=== PATIENT | male | born 1955 | race Caucasian/White ===

== ENCOUNTER 2017-03-22 20:41 | Emergency (ER) | payer OTHER ==
[2017-03-22 20:48] VITALS: RESP 18; O2SAT 92
--- NOTE | 2017-03-22 20:55 | EDPHY ---
H & P Stated Complaint: Fever, Recent Surg (gastic sleeve) HPI/ROS: CHIEF COMPLAINT: Postoperative fever HISTORY OF PRESENT ILLNESS: The patient is a anticoagulated 61 y/o male arriving with his complaining of a post-operative fever. He has a prior history of diverticulitis with subsequent colostomy. He had a gastric bypass sleeve performed on 03/18/17, 4 days ago. He was feeling well until yesterday when he began to develop chills. At 08:00 this morning, over 12 hours ago, he had a fever of 102 for which he has taken one dose of Tylenol. He describes continued bloody drainage into HEATHER drain, perhaps slightly increased from the amount of drainage he had been having. No significant change in ostomy output. He denies dyspnea, urinary symptoms, chest pain. REVIEW OF SYSTEMS: A ten point review of systems was performed and is negative with the exception of the items mentioned in the HPI. Source: Patient, Family - Personal History Current Tetanus/Diphtheria Vaccine: Yes Current Tetanus Diphtheria and Acellular Pertussis (TDAP): Yes Tetanus Vaccine Date: < 10 YRS - Medical/Surgical History PMH: PMH includes: 1. Diverticulitis with colostomy 2. Hernia surgery 3. Gastric bypass sleeve 03/18/17 at 4. Hypertension 5. Hyperlipidemia 6. Obesity surgeon: Dr. Nugent Hx Asthma: No Hx Chronic Respiratory Disease: No Hx Diabetes: Yes Hx Cardiac Disease: No Hx Renal Disease: No Hx Cirrhosis: No Hx Alcoholism: No Hx HIV/AIDS: No Hx Splenectomy or Spleen Trauma: No Other PMH: Diverticulitis, HTN, hyperlipidemia, Gastric Sleeve surgery, Ostomy, abdominal hernia, - Social History Smoking Status: Never smoked Additional Social History: at bedside. Works in [employer]). No tobacco use. - Physical Exam Exam: General Appearance: Alert. Vital signs reviewed. Temperature 38.3, blood pressure 166/84 at triage. HR 109. Eyes: Pupils equal and round, no conjunctival injection, no discharge. Anicteric. ENT, Mouth: Mucous membranes are moist, no oropharyngeal erythema or edema. Neck: No lymphadenopathy, supple. Respiratory: Lungs are clear to auscultation; no wheezes, rales, or rhonchi. Cardiovascular: Regular rate and rhythm; no murmur, rub, or gallop. Not tachycardic at time of my exam, although he was in triage. Gastrointestinal: Abdomen is obese, soft and nontender, no masses or organomegaly, bowel sounds present, mild erythema at HEATHER drain site, colostomy in place, hernia surrounding ostomy (easily reducible). Surgical incisions clean and dry. Skin: Warm and dry, no rashes on exposed skin, normal color. Back: Nontender to palpation over the thoracolumbar spine. No CVAT. Extremities: Chronic venous stasis changes to both lower extremities, no calf tenderness or swelling. Neurological: Alert and oriented. Moving all four extremities easily and equally. Psychiatric: Normal affect. Constitutional: Initial Vital Signs Temperature (C) 38.3 C 03/22/17 20:42 Heart Rate 109 H 03/22/17 20:42 Respiratory Rate 18 03/22/17 20:42 Blood Pressure 166/84 H 03/22/17 20:42 O2 Sat (%) 92 03/22/17 20:42 O2 Delivery Mode Room Air Allergies/Adverse Reactions: No Known Allergies Allergy (Verified 03/25/17 11:12) Home Medications: Medication Instructions Recorded Levothyroxine [Synthroid 100 mcg 100 mcg PO DAILY06 01/09/14 (*)] Metoprolol Tartrate [Lopressor 25 12.5 mg PO BID 01/09/14 mg (*)] Warfarin Sodium [Coumadin 3MG (*)] 9 mg PO DAILY16 10/22/14 oxyCODONE CR [Oxycontin] 30 mg PO BID #30 tab 11/13/14 oxyCODONE IR [Oxycodone Ir (*)] 15 - 20 mg PO Q4 PRN #60 tab 11/13/14 Medical Decision Making - Diagnostics Imaging: Discussed imaging studies w/ scallop dredger Radiologist, I viewed and interpreted images myself ED Course/Re-evaluation: IV established. Labs drawn including cultures. Abdominal CT ordered. Tylenol one gram administered. 2119: Consulted with Dr. Tay, surgeon. He will assess patient in the ED. 01/21/2025: Patient re-evaluated after returning from CT scan. The CT scan has been reported to me as showing an intact anastomatic line and no abscess. Patient is now afebrile with a temperature 37. His abdomen remains soft and nontender. Chest x-ray is not been done yet. Patient has not urinated. He would like to return home. A call has been placed [facility]. CXR does not show infiltrate. No urine obtained. Patient and his are comfortable returning home. Afebrile after tylenol. WBC 10.8 with mild left shift. Still mildly hypertensive (he has h/o htn). I spoke with on-call MD at [facility] and no further work-up recommended at this time. Patient will monitor his symptoms and return if he takes a turn for the worse. Differential Diagnosis: I considered a differential diagnosis that includes but is not limited to bowel obstruction, , urinary tract infection, intra-abdominal abscess, leakage from anastomotic line, pneumonia, wound infection. - Data Points Laboratory Results: Laboratory Results 03/22/17 21:08 03/22/17 21:08 Medications Given: Discontinued Medications Acetaminophen (Tylenol) 1,000 mg PO EDNOW ONE Stop: 03/22/17 21:52 Last Admin: 03/22/17 22:08 Dose: 1,000 mg Hydromorphone HCl (Dilaudid) 1 mg IVP EDNOW ONE Stop: 03/22/17 22:02 Last Admin: 03/22/17 22:09 Dose: 1 mg Sodium Chloride (Ns) 1,000 mls @ 0 mls/hr IV ONCE ONE PRN Reason: Wide Open Stop: 03/22/17 21:34 Last Admin: 03/22/17 21:30 Dose: 1,000 mls Departure - Departure Disposition: Home, Routine, Self-Care Clinical Impression: Fever Qualifiers: Fever type: due to other condition Qualified Code(s): R50.81 - Fever presenting with conditions classified elsewhere Condition: Good Instructions: Fever in Adults (ED) Additional Instructions: Take tylenol 650 mg every four hours for fever. Do not take more than 3000 mg of tylenol in a 24 hour period. If you have recurrent or persistent fever, abdominal pain, drainage from your incisions, warmth or redness of your incisions, vomiting, any new or concerning symptoms--you should be re-evaluated. Follow up with Dr. Nugent as planned. Referrals: Tita Garcia MD [Primary Care Provider] - As per Instructions Report Scribed for: Jessi León Report Scribed by: Brooke Mullen Date of Report: 03/22/17 Time of Report: 21:07 Physician Review and Approval Statement: 03/22/17 20:55 Portions of this note were transcribed by the medical educator. I, Dr. Jessi León, personally performed the history, physical exam, and medical decision- making; and confirmed the accuracy of the information in the transcribed note.
[2017-03-22 21:25] LABS: % IMMATURE GRANULYOCYTES 0.3 % (0.0-1.1); ABSOLUTE IMMATURE GRANULOCYTES 0.03 10^3/uL (0.00-0.10); ADD DIFF? NO; ADD MORPH? NO; ADD SCAN? NO; ATYPICAL LYMPHOCYTE FLAG 0 (0-99); FRAGMENT RBC FLAG 0 (0-99); HEMATOCRIT 43.8 % (40.0-51.0); HEMOGLOBIN 14.8 g/dL (13.7-17.5); LEFT SHIFT FLG 10 (0-99); LIPEMIA HEMOLYSIS FLAG 90 (0-99); MEAN CELL HEMOGLOBIN 29.7 pg (27.9-34.1); MEAN CELL HEMOGLOBIN CONCENTR. 33.8 g/dL (32.4-36.7); MEAN PLATELET VOLUME 10.4 fL (8.7-11.7); PLATELET CLUMPS FLAG 0 (0-99); PLATELET COUNT 187 10^3/uL (150-400); RED BLOOD CELL COUNT 4.98 10^6/uL (4.40-6.38); RED CELL DISTRIBUTION WIDTH 13.2 % (11.5-15.2)
[2017-03-22] MEDS ORDERED: NS 1,000 ML IV ONE (21:33)
[2017-03-22 21:45] LABS: ANION GAP 15 mEq/L (8-16); CALCIUM 9.1 mg/dL (8.5-10.4); CARBON DIOXIDE 20 mEq/l (22-31); CHLORIDE 101 mEq/L (97-110); CREATININE 0.9 mg/dL (0.7-1.3); GLOMERULAR FILTRATION RATE > 60; GLUCOSE 165 mg/dL (70-100); POTASSIUM 3.5 mEq/L (3.5-5.2); SODIUM 136 mEq/L (134-144)
[2017-03-22] MEDS ORDERED: ACETAMINOPHEN 500 MG TAB PO ONE (21:51)
[2017-03-22] MEDS ORDERED: IOPAMIDOL (ISOVUE-300) 100 ML BTL ONE ×2 (22:00→22:25)
[2017-03-22] MEDS ORDERED: HYDROmorphONE/DILAUDID 1 MG/ML SYR IVP ONE (22:01)
[2017-03-22 22:07] LABS: INR 1.56 (0.83-1.16); PROTIME(PATIENT) 18.7 SEC (12.0-15.0)
[2017-03-22 23:32] VITALS: BP 150/83; PULSE 68; TEMP 98.6
== END 2017-03-23 00:24 | disposition home or self-care (01) ==
DX: R50.82 Postprocedural fever (principal); I10 Essential (primary) hypertension; E11.9 Type 2 diabetes mellitus without complications; Z79.01 Long term (current) use of anticoagulants
CPT/HCPCS: 96374; J1170; Q9967

== ENCOUNTER 2017-03-25 11:10 | Emergency (ER) | payer OTHER ==
[2017-03-25] MEDS ORDERED: OXYMETAZOLINE 30 ML NASAL SPRAY ONE ×2 (11:42→11:54)
[2017-03-25] MEDS ORDERED: SILVER NITRATE APPLICATOR 1 APPL TP ONE (11:54)
--- NOTE | 2017-03-25 12:09 | EDPHY ---
H & P Smoking Status: Never smoked Time Seen by Provider: 03/25/17 11:40 HPI/ROS: HPI:61-year-old male presents to emergency department with chief concern nose bleed. Onset at 10:00 p.m. last night. reports continuous nose bleed minimally controlled by clamping his nose. INR checked this morning revealed INR 2.5. Patient is anticoagulated on Coumadin. Denies dizziness, shortness of breath, chest pain, nausea or vomiting. Denies previous nose bleeds. ROS:10 point review of systems is negative other than as stated in HPI (Maggie Israel) Physical Exam: Vital signs stable, reviewed by me General: Awake, alert, calm, cooperative. No acute distress. Head: Normalocephalic. Atraumatic. EENT: PERRLA. EOMI. No pallor or injection. Anicteric. No nystagmus. TMs intact bilaterally. clots identified each naris bilaterally. Neck: Supple, nontender. No lymphadenopathy. Full range of motion. Respiratory: Breathing unlabored. Breath sounds equal bilaterally and clear to auscultation. No adventitious sounds. CV: Chest nontender, atraumatic. Heart rate regular. No murmur. Brisk cap refill all extremities. Neuro: Alert. Oriented x 3. Skin: Skin warm, dry, intact. Extremities: Full range of motion in all 4 extremities. (Maggie Israel) Constitutional: Initial Vital Signs Heart Rate 84 03/25/17 11:12 Respiratory Rate 18 03/25/17 11:12 Blood Pressure 156/97 H 03/25/17 11:12 O2 Sat (%) 95 03/25/17 11:12 O2 Delivery Mode Room Air Allergies/Adverse Reactions: No Known Allergies Allergy (Verified 03/25/17 11:12) Home Medications: Medication Instructions Recorded Levothyroxine [Synthroid 100 mcg 100 mcg PO DAILY06 01/09/14 (*)] Metoprolol Tartrate [Lopressor 25 12.5 mg PO BID 01/09/14 mg (*)] Warfarin Sodium [Coumadin 3MG (*)] 9 mg PO DAILY16 10/22/14 oxyCODONE CR [Oxycontin] 30 mg PO BID #30 tab 11/13/14 oxyCODONE IR [Oxycodone Ir (*)] 15 - 20 mg PO Q4 PRN #60 tab 11/13/14 Medical Decision Making Procedures: After clots were suctioned from nose, right nare anterior source of nose bleed identified. Afrin instilled cotton swabs in clamp applied for 15 minutes. Hemostasis achieved. Area was cauterized successfully with silver nitrate.. Patient watched for 30 minutes after procedure. No further oozing or bleeding. Strict instructions given for follow-up. Patient tolerated. (Maggie Israel) ED Course/Re-evaluation: 61-year-old male presents to emergency department with chief concern nosebleed. [facility] was [facility] this [facility]. INR 2.5 this morning. CBC reveals a stable H&H within normal. white count 6200. hemostasis of nose bleed achieved. Counseled regarding when to return. He and his verbalize understanding. (Maggie Israel) Differential Diagnosis: Differential diagnosis includes but is not limited to nose bleed, hemorrhage, sinusitis, abscess (Maggie Israel) Other Provider: The patient wasevaluatedand managed by themidlevel provider. Idiscussed the patient's presentation and course with thephysicianassistantor nurse practitionerand agree with theevaluation. My co-signature indicates that I have reviewed this chart and I agree with the findings and plan of care as documented. I am the secondary supervisingphysician. (Gypsy Herndon) - Data Points Laboratory Results: Laboratory Results 03/25/17 12:20 Departure - Departure Disposition: Home, Routine, Self-Care Clinical Impression: Right-sided nosebleed Condition: Good Instructions: Nosebleed (ED) Additional Instructions: Plan: If oozing recurs, apply nose clamp for 30 minutes Please follow-up with ENT Ginger Celeste promptly if your nosebleed recurs-- When you call to schedule appointment, please let the office know you are an " ER follow up" appointment" Return here promptly for worsening symptoms or concerns Referrals: Tita Garcia MD [Primary Care Provider] - As per Instructions Ginger Celeste MD [Medical Doctor] - As per Instructions
[2017-03-25 12:31] LABS: % IMMATURE GRANULYOCYTES 0.5 % (0.0-1.1); ABSOLUTE IMMATURE GRANULOCYTES 0.03 10^3/uL (0.00-0.10); ADD DIFF? NO; ADD MORPH? NO; ADD SCAN? NO; ATYPICAL LYMPHOCYTE FLAG 10 (0-99); FRAGMENT RBC FLAG 0 (0-99); HEMATOCRIT 43.4 % (40.0-51.0); HEMOGLOBIN 14.6 g/dL (13.7-17.5); LEFT SHIFT FLG 0 (0-99); LIPEMIA HEMOLYSIS FLAG 80 (0-99); MEAN CELL HEMOGLOBIN 29.8 pg (27.9-34.1); MEAN CELL HEMOGLOBIN CONCENTR. 33.6 g/dL (32.4-36.7); MEAN CELL VOLUME 88.6 fL (81.5-99.8); MEAN PLATELET VOLUME 10.4 fL (8.7-11.7); PLATELET CLUMPS FLAG 0 (0-99); PLATELET COUNT 198 10^3/uL (150-400); RED CELL DISTRIBUTION WIDTH 13.1 % (11.5-15.2)
[2017-03-25 13:35] VITALS: BP 143/76; PULSE 81; RESP 16; TEMP 98.8; O2SAT 96
== END 2017-03-25 13:33 | disposition home or self-care (01) ==
PROC: 2Y41X5Z Packing of Nasal Region using Packing Material (ICD-10-PCS; principal; 2017-03-25)
DX: R04.0 Epistaxis (principal); Z79.01 Long term (current) use of anticoagulants

== ENCOUNTER → 2017-11-20 | Outpatient (CLI) | payer OTHER ==
[~2017-11-20] MED LIST: IOPAMIDOL (ISOVUE-300) 100 ML BTL ONE
== END ==
LOC: FIMAGING 11:25 → EDSTATUS 11:27
PROVIDERS: ATTEND Surgery
DX: K43.5 Parastomal hernia without obstruction or gangrene (principal); N28.1 Cyst of kidney, acquired; Z90.49 Acquired absence of other specified parts of digestive tract; Z87.19 Personal history of other diseases of the digestive system
CPT/HCPCS: Q9967

== ENCOUNTER 2018-10-21 10:37 | Inpatient (IN) | payer OTHER ==
--- NOTE | 2018-10-21 11:27 | EDPHY ---
HPI/HX/ROS/PE/MDM Narrative: CHIEF COMPLAINT: High BP, upper abdominal pain HISTORY OF PRESENT ILLNESS: This patient is a 63 year old male with complex medical and surgical GI history with multiple admissions. He presents today for evaluation of upper abdominal pain and hypertension. On 08/04/18, he underwent ostomy reversal and hernia repair with Dr. Luna at [facility]. He has generally been doing well since this procedure. He wears an abdominal binder daily. This morning when he put it on, he began feeling very ill. He describes an "achy, grinding pain in the solar plexus area". This began to radiates into his chest. He took his BP at home and noted he was hypertensive at 197/117. He is normally around 140 systolic. He took a second metoprolol dose for relief. The patient states he is not able to tell the difference between GI or cardiac symptoms, so presents for evaluation. He denies shortness of breath, diaphoresis, nausea, vomiting. He endorses history of CAD. Denies having any stents or past MIs. No history of atrial fibrillation. No hyperlipidemia. No fever, chills, shortness of breath, palpitations, vomiting, diarrhea, urinary complaints, headache, lightheadedness. REVIEW OF SYSTEMS: A comprehensive 10 system review of systems is otherwise negative aside from elements mentioned in the history of present illness and medical decision making. PAST MEDICAL HISTORY: 1. History of recurrent diverticulitis with obstruction s/p resection. 2. Anastomosis necrosis with resultant peritonitis and severe sepsis s/p colostomy. Ostomy reversal 08/21/[address] Luna at . 3. Hernia surgery 4. Gastric bypass sleeve 03/18/17 at 5. Hypertension 6. Hyperlipidemia 7. Obesity 8. CAD 9. Chronic LLE edema / venous stasis changes 10. History of diabetes mellitus type 2, reportedly controlled since patient's gastric sleeve. SOCIAL HISTORY: . Employed. Son at bedside. Occasional alcohol use. History of chewing tobacco use, discontinued 10 years ago. PCP Tita Garcia. VITAL SIGNS: Reviewed by me GENERAL: Well-developed, well-nourished, resting comfortably in no respiratory distress. HEENT: Atraumatic. Eyes: No icterus, no injection. Mouth: moist mucous membranes. No erythema or lesions. Neck: supple with no adenopathy. LUNGS: Clear to auscultation bilaterally, no wheezes, rhonchi or rales. CARDIAC: Regular rate and rhythm, no rubs, murmurs or gallops. ABDOMEN: Multiple healed surgical incisions over abdomen. Palpable hernia in LLQ , not incarcerated. Not distended. Diffuse abdominal tenderness. No guarding or rebound. BACK: No CVA tenderness. EXTREMITIES: Chronic ortega stasis changes on bilateral lower extremities. No trauma. Range of motion is normal throughout. NEURO: Alert and oriented, grossly nonfocal. SKIN: Chronic ortega stasis changes on bilateral lower extremities. Warm and dry , no rash. PSYCHIATRIC: Normal mentation, no agitation. Portions of this note were transcribed by a medical doctor md. I personally performed a history, physical exam, medical decision making, and confirmed accuracy of information the transcribed note. ED Course: 63 y/o male with history of multiple abdominal surgeries presents with abdominal pain, concerns regarding hypertension. BP 169/84 at triage. Exam reveals palpable hernia in LLQ, not incarcerated. Diffuse abdominal tenderness, no guarding or rebound. Venous stasis changes in bilateral LLEs, improving recently per patient and son. Plan for EKG, labs including CBC, chemistries, troponin, liver panel. Plan for chest x-ray and CT abdomen/pelvis. 12-LEAD EKG: Please see the full report in [facility]. My interpretation: Sinus rhythm, rate 63. CXR negative for acute processes. 13:[address] Quezada, radiologist. CT abdomen/pelvis shows fat stranding extending to the anastomosis, possibly representing omental inflammation/infarct , fat necrosis, and possibly underlying enterocolitis. No obstruction. POC troponin 0.04. Lab troponin 0.054. Labs otherwise largely unremarkable. Reassessed patient. Discussed results. Plan to admit for abdominal pain, chest pain, especially given his elevated troponin today. The patient is amenable to this. 13:14 Consulted with hospitalist service. Dr. Altman accepts admission. - Data Points Imaging Results: Imaging Impressions Abdomen CT 10/21/18 11:49 Impression: Interval ostomy takedown with redemonstration of a fat-containing and small bowel containing peristomal hernia. No obstruction but there is a subjacent fat stranding which extends to the anastomosis, possibly representing omental inflammation/infarct, fat necrosis, and possibly underlying enterocolitis. Findings and recommendations discussed with Gypsy Herndon MD admissions assistant at 1300 hour, 10/21/2018. Chest X-Ray 10/21/18 11:49 Impression: Nothing acute identified. Imaging: Discussed imaging studies w/ order caller Radiologist, I viewed and interpreted images myself Laboratory Results: Laboratory Results 10/21/18 11:05 10/21/18 11:05 10/21/18 10/21/18 10/21/18 11:50 11:07 11:05 WBC RBC Hgb Hct MCV MCH MCHC RDW Plt Count MPV Neut % (Auto) Lymph % (Auto) Boundary % (Auto) Eos % (Auto) Baso % (Auto) Nucleat RBC Rel Count Absolute Neuts (auto) Absolute Lymphs (auto) Absolute Monos (auto) Absolute Eos (auto) Absolute Basos (auto) Absolute Nucleated RBC Immature Gran % Immature Gran # Sodium 138 mEq/L mEq/L (135-145) Potassium 4.3 mEq/L mEq/L (3.5-5.2) Chloride 107 mEq/L mEq/L (97-110) Carbon Dioxide 22 mEq/l mEq/l (22-31) Anion Gap 9 mEq/L mEq/L (6-14) BUN 13 mg/dL mg/dL (7-23) Creatinine 0.8 mg/dL mg/dL (0.7-1.3) Estimated GFR > 60 Glucose 138 mg/dL H mg/dL (70-100) Calcium 9.3 mg/dL mg/dL (8.5-10.4) Total Bilirubin 0.6 mg/dL mg/dL (0.1-1.4) Conjugated Bilirubin 0.3 mg/dL mg/dL (0.0-0.5) Unconjugated Bilirubin 0.3 mg/dL mg/dL (0.0-1.1) AST 24 IU/L IU/L (17-59) ALT 23 IU/L IU/L (21-72) Alkaline Phosphatase 83 IU/L IU/L (38-126) POC Troponin I 0.04 ng/mL ng/mL (0.00-0.08) Troponin I 0.054 ng/mL H ng/mL (0.000-0.034) Total Protein 6.9 g/dL g/dL (6.3-8.2) Albumin 3.9 g/dL g/dL (3.5-5.0) 12/18/18 11:05 WBC 7.09 10^3/uL 10^3/uL (3.80-9.50) RBC 5.22 10^6/uL 10^6/uL (4.40-6.38) Hgb 14.4 g/dL g/dL (13.7-17.5) Hct 44.3 % % (40.0-51.0) MCV 84.9 fL fL (81.5-99.8) MCH 27.6 pg L pg (27.9-34.1) MCHC 32.5 g/dL g/dL (32.4-36.7) RDW 13.8 % % (11.5-15.2) Plt Count 241 10^3/uL 10^3/uL (150-400) MPV 9.4 fL fL (8.7-11.7) Neut % (Auto) 68.6 % % (39.3-74.2) Lymph % (Auto) 21.2 % % (15.0-45.0) Boundary % (Auto) 8.7 % % (4.5-13.0) Eos % (Auto) 0.4 % L % (0.6-7.6) Baso % (Auto) 0.8 % % (0.3-1.7) Nucleat RBC Rel Count 0.0 % % (0.0-0.2) Absolute Neuts (auto) 4.86 10^3/uL 10^3/uL (1.70-6.50) Absolute Lymphs (auto) 1.50 10^3/uL 10^3/uL (1.00-3.00) Absolute Monos (auto) 0.62 10^3/uL 10^3/uL (0.30-0.80) Absolute Eos (auto) 0.03 10^3/uL 10^3/uL (0.03-0.40) Absolute Basos (auto) 0.06 10^3/uL 10^3/uL (0.02-0.10) Absolute Nucleated RBC 0.00 10^3/uL 10^3/uL (0-0.01) Immature Gran % 0.3 % % (0.0-1.1) Immature Gran # 0.02 10^3/uL 10^3/uL (0.00-0.10) Sodium Potassium Chloride Carbon Dioxide Anion Gap BUN Creatinine Estimated GFR Glucose Calcium Total Bilirubin Conjugated Bilirubin Unconjugated Bilirubin AST ALT Alkaline Phosphatase POC Troponin I Troponin I Total Protein Albumin Medications Given: Discontinued Medications Aspirin (Aspirin) 324 mg PO EDNOW ONE Stop: 10/21/18 13:31 Last Admin: 10/21/18 13:47 Dose: 324 mg Sodium Chloride (Ns) 1,000 mls @ 0 mls/hr IV EDNOW ONE; Wide Open PRN Reason: Protocol Stop: 10/21/18 11:50 Last Admin: 10/21/18 11:58 Dose: 1,000 mls Ondansetron HCl (Zofran) 4 mg IVP EDNOW ONE Stop: 10/21/18 11:50 Last Admin: 10/21/18 11:58 Dose: 4 mg Point of Care Test Results: Chemistry 10/21/18 11:07 POC Troponin I 0.04 ng/mL ng/mL (0.00-0.08) General Time Seen by Provider: 10/21/18 11:07 Initial Vital Signs: Initial Vital Signs Temperature (C) 36.4 C 10/21/18 10:45 Heart Rate 63 10/21/18 10:45 Respiratory Rate 17 10/21/18 10:45 Blood Pressure 169/84 H 10/21/18 10:45 O2 Sat (%) 97 10/21/18 10:45 O2 Delivery Mode Room Air Allergies/Adverse Reactions: No Known Allergies Allergy (Verified 10/21/18 10:44) Home Medications: Medication Instructions Recorded Levothyroxine [Synthroid 100 mcg 100 mcg PO DAILY06 01/09/14 (*)] Metoprolol Tartrate [Lopressor 25 25 mg PO DAILY 01/09/14 mg (*)] Acetaminophen [Tylenol 325mg (*)] 325 mg PO DAILY PRN 10/21/18 Tamsulosin HCl [Flomax 0.4 MG (*)] 0.4 mg PO DAILY 10/21/18 Departure - Departure Disposition: [facility] In[facility] Acute Clinical Impression: Chest pain Qualifiers: Chest pain type: other chest pain Qualified Code(s): R07.89 - Other chest pain Abdominal pain Qualifiers: Abdominal location: upper abdomen, unspecified Qualified Code(s): R10.10 - Upper abdominal pain, unspecified Condition: Fair Report Scribed for: Gypsy Herndon Report Scribed by: Marla Miller Date of Report: 10/21/18 Time of Report: 13:06
[2018-10-21] MEDS ORDERED: NS 1,000 ML IV ONE (11:49)
[2018-10-21] MEDS ORDERED: ONDANSETRON 4 MG/2 ML VIAL IVP ONE (11:49)
[2018-10-21 11:55] LABS: PLATELET COUNT 241 10^3/uL (150-400)
[2018-10-21] MEDS ORDERED: IOPAMIDOL (ISOVUE-300) 100 ML BTL ONE (12:10)
[2018-10-21] MEDS ORDERED: ASPIRIN 81 MG CHEWABLE TAB PO ONE (13:30)
[2018-10-21] MEDS ORDERED: NITROGLYCERIN 0.4 MG BTL SL PRN (13:48)
[2018-10-21] MEDS ORDERED: ONDANSETRON 4 MG/2 ML VIAL IVP PRN (13:48)
[2018-10-21 15:46] LABS: INR 1.23 (0.83-1.16); PROTIME(PATIENT) 15.7 SEC (12.0-15.0)
--- NOTE | 2018-10-21 16:28 | GHP ---
DATE OF ADMISSION: 10/21/2018 CHIEF COMPLAINT: Elevated blood pressure, upper abdominal pain. HISTORY OF PRESENT ILLNESS: A 63-year-old male with hypertension, hyperlipidemia, complex surgical h istory with prior diverticulitis status post resection complicated by peritonitis. On 08/04/2018, he underwent ostomy reversal and hernia repair by Dr. Luna at [facility]. He was putting on an abdominal bin annabel this morning and then he felt very ill with nausea and with an achy pain in his solar plexus. De nied associated shortness of breath or radiation of the pain to his jaw, neck, arm, or back. He was feeling off so he checked his blood pressure, which was elevated to 224/117 with a repeat of 197/117. He had been in an argument with his son this morning. He took his normal dose of metoprolol 25 mg and then took a 2nd. He does climb 12 stairs at home wit hout chest pain or shortness of breath. Next, in the ER, troponin mildly elevated at 0.54. Reports nuclear stress in the past that was normal. I reviewed [facility]. Could not locate this at [facility] . REVIEW OF SYSTEMS: I completed a 10-point review of systems, negative except as noted in the HPI. PAST MEDICAL HISTORY: Hypertension, prediabetes, hyperlipidemia, hypothyroidism, chronic lower leg e liban/venous stasis changes, history of prediabetes, now controlled after gastric sleeve surgery, obes ity, history of diverticulitis with obstruction status post resection, ostomy complicated by anastomo sis with necrosis and peritonitis, status post colostomy, left leg DVT. PAST SURGICAL HISTORY: 1. Gastric sleeve. 2. Hernia repair. 3. Ostomy reversal 08/04/2018, with Dr. Luna at [facility]. 4. Hernia surgery. 5. Gastric bypass sleeve 03/23/2017. FAMILY HISTORY: Father with an IA and CABG. 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 Has a son. Denies tobacco or [place] licits. Occasional alcohol. History of chewing tobacco 10 years ago. HOME MEDICATIONS: Levothyroxine 100 mcg daily, metoprolol 25 mg daily, tamsulosin 0.4 mg daily, Tyle nol as needed. ALLERGIES: None. PHYSICAL EXAMINATION: VITAL SIGNS: Temperature 36.4, blood pressure 169/84, repeat 157/82. Heart r ate is in the 60s, respirations 18, 93% on room air. GENERAL: Obese in no acute distress. HEENT: PERRLA. Moist mucous membranes. CV: Regular rate and rhythm. No reproducible chest pain. ABDOMEN : With several healed surgical incisions. Hernia, left lower quadrant, not incarcerated. Mild mid lower abdominal pain. SKIN: Venous stasis changes lower extremities. NEURO: 2-12 intact. PSYCH: Alert and oriented x3. LABORATORY DATA: WBC 7, hemoglobin 14, hematocrit 43, platelets 241. Sodium 138, potassium 4.3, chl oride 107, carbon dioxide 22, creatinine 0.8, glucose 138. LFTs within normal. POC troponin 0.04. Repeat 0.054. IMAGING DATA: Chest x-ray is personally reviewed by me. No infiltrate or edema. TEST DATA: EKG is personally reviewed by me. Normal sinus rhythm, ST flattening lead II, T-wave inv ersion in III, aVF, and ST flattening in anterior leads similar to prior. ASSESSMENT AND PLAN: 1. Indeterminate troponin: Suspect secondary to elevated blood pressure with a systolic greater abiel n 220. His abdominal pain could be an anginal equivalent but unclear if this is from his binder. No rmally can walk up 12 stairs at home several times a day without chest pain or shortness of breath. Will monitor on telemetry. Repeat troponin. Consider exercise treadmill test in the morning. Will control blood pressure. 2. Hypertensive urgency: Reported greater than 200 at home. Currently in the 150s to 160s. He is on metoprolol only. Will start lisinopril 5 mg. 3. Hypothyroidism: Synthroid. 4. Prediabetes: States now diet controlled after gastric sleeve bypass. 5. History of left leg deep vein thrombosis: The patient is still on Coumadin, but the pharmacy munir d he has not showed up at the anticoagulation clinic for quite some time. Will re-discuss with nneka moses. Likely does not need lifelong given this was 10 years ago and provoked by travel. Will have him follow up with his PCP. 6. Diet: Cardiac. 7. Deep vein thrombosis prophylaxis: Lovenox. DISPOSITION: Warrants observation admission for telemetry. Repeat troponin and exercise treadmill i n the morning. /[id number]/MODL
--- NOTE | 2018-10-21 22:12 | CPEKG ---
Test Reason : OPEN Blood Pressure : / mmHG Vent. Rate : 063 BPM Atrial Rate : 063 BPM P-R Int : 146 ms QRS Dur : 090 ms QT Int : 411 ms P-R-T Axes : 024 065 038 degrees QTc Int : 421 ms Sinus rhythm Confirmed by Gypsy Herndon ([id number]) on 10/21/2018 10:12:07 PM Referred By: Confirmed By:Gypsy Herndon
[2018-10-22] MEDS: LEVOTHYROXINE 100 MCG TAB PO SCH (05:52)
[2018-10-22] MEDS ORDERED: LISINOPRIL 10 MG TAB PO SCH (09:00)
[2018-10-22] MEDS ORDERED: METOPROLOL TARTRATE 25 MG TAB PO SCH ×2 (09:00→21:00)
[2018-10-22 11:04] LABS: INR 1.22 (0.83-1.16); PROTIME(PATIENT) 15.6 SEC (12.0-15.0)
[2018-10-22] MEDS ORDERED: DIAZEPAM 5 MG TAB PO ONE (11:26)
[2018-10-22] MEDS ORDERED: ASPIRIN EC 325 MG TAB PO ONE (11:26)
[2018-10-22] MEDS ORDERED: FAMOTIDINE 20 MG TAB PO ONE (11:26)
[2018-10-22] MEDS ORDERED: diphenhydrAMINE 25 MG CAP PO ONE (11:26)
[2018-10-22] MEDS ORDERED: TEMAZEPAM 15 MG CAP PO PRN (11:26)
[2018-10-22] MEDS ORDERED: ACETAMINOPHEN 325 MG TAB PO PRN (11:26)
--- NOTE | 2018-10-22 11:58 | GCON ---
DATE OF CONSULTATION: 10/22/2018 REFERRING PHYSICIAN: Kika Altman MD CHIEF COMPLAINT: We have been asked by Dr. Altman to evaluate the patient with a chief complaint of chest pain. HISTORY OF PRESENT ILLNESS: The patient is a 63-year-old gentleman with risk factors, including age, hypertension, hyperlipidemia, and glucose intolerance who presents with a chief complaint of chest p ain. Patient was in his usual state of health until the day of admission when he was putting on an a bdominal binder. While putting the abdominal binder on, he felt some discomfort in his epigastrium e xtending into his diaphragm. The discomfort was associated with nausea, but not vomiting or diaphore sis. The patient took his blood pressure at the time, he noted it to be quite elevated at 224/117. When his symptoms did not improve, he presented to the emergency department for further evaluation. In the emergency department, an EKG performed demonstrating no acute ST or T-wave changes. His initi al troponin was mildly elevated. He has been pain-free since hospital admission. PAST MEDICAL HISTORY: 1. Hypertension. 2. Hyperlipidemia. 3. Glucose intolerance none. 4. Status post gastric sleeve. 5. Status post hernia repair. 6. Status post ostomy reversal. MEDICATIONS: Please see medicine reconciliation form. ALLERGIES: No known drug allergies. SOCIAL HISTORY: The patient works as a senior materials scientist. He does not smoke. He denies problems with alcoh ol. FAMILY HISTORY: Notable for coronary artery disease. REVIEW OF SYSTEMS: 10-point review of systems is negative, except as noted in HPI. PHYSICAL EXAMINATION: GENERAL: The patient is resting comfortably in bed. He does not appear to be in acute distress. VITAL SIGNS: Temperature is afebrile. Pulse is 73, blood pressure 154/96, resp iratory rate is 14, SaO2 is 99% on room air. HEENT: Normocephalic, atraumatic. Extraocular muscles intact. NECK: No JVD. No bruits. LUNGS: Clear to auscultation bilaterally. CARDIOVASCULAR: Re gular rate and rhythm, S1, S2. ABDOMEN: Evidence of previous abdominal surgery. Mild early distend ed. Normoactive bowel sounds. EXTREMITIES: Moderate lower extremity edema with evidence of venous stasis. NEURO: Patient is awake, alert, and oriented x3. LABORATORY/IMAGING: White blood cell count 7.09, hemoglobin 14.4, hematocrit 44.3, platelet count 24 1. Sodium 138, potassium 4.3, chloride 107, CO2 22, BUN 13, creatinine 0.8. Troponin 0.054 to 1.330 to 1.21. INR is 1.22. EKG demonstrates sinus rhythm with nonspecific ST and T-wave changes in the inferior and lateral lead s. ASSESSMENT/PLAN: Patient is a 63-year-old gentleman with multiple cardiac risk factors who presents with an acute coronary syndrome and elevated troponin. Reviewed risks and benefits of cardiac cathet erization with patient and his family. Will arrange to have this performed. /[id number]/MODL
[2018-10-22] MEDS ORDERED: LIDOCAINE 1% 300 MG/30 ML SDV ONE (13:31)
[2018-10-22] MEDS ORDERED: IOPAMIDOL (ISOVUE-370) 150 ML BTL IV ONE ×3 (13:31→15:05)
[2018-10-22] MEDS ORDERED: fentaNYL 100 MCG/2 ML INJ ONE ×4 (13:31→16:05)
[2018-10-22] MEDS ORDERED: MIDAZOLAM 2 MG/2 ML VIAL ONE ×3 (13:31→15:20)
--- NOTE | 2018-10-22 13:51 | PDPROPOC ---
Sedation Plan of Care Sedation Plan of Care: vital signs stable, mental status noted, patient educated of risks, benefits, alternatives, patient can tolerate sedation ASA Classification: ASA 2 Planned drugs: fentanyl, midazolam Mallampati Score: Class 2 Mallampati Reference Image: Patient passed 3-3-2 rule?: Yes
--- NOTE | 2018-10-22 14:06 | CPEKG ---
Test Reason : OPEN Blood Pressure : / mmHG Vent. Rate : 064 BPM Atrial Rate : 064 BPM P-R Int : 139 ms QRS Dur : 086 ms QT Int : 432 ms P-R-T Axes : 026 051 -41 degrees QTc Int : 446 ms Sinus rhythm Confirmed by Juan Goldberg ([id number]) on 10/22/2018 2:06:17 PM Referred By: Confirmed By:Juan Goldberg
[2018-10-22] MEDS ORDERED: BIVALIRUDIN 250 MG/5 ML VIAL IV ONE ×2 (14:16→14:54)
[2018-10-22] MEDS ORDERED: NITROGLYCERIN 1,500 MCG/15 ML VIAL MISC ONE (14:16)
[2018-10-22] MEDS ORDERED: EPTIFIBATIDE 200 MG/100 ML BOTTLE IV ONE (14:20)
--- NOTE | 2018-10-22 14:34 | HOSPPROG ---
Hospitalist Progress Note Assessment/Plan: #ACS with elevated troponin -trop spike overnight. Given HTN, HLD, and family hx, he will undergo cath today -increase BB to BID, add statin #HTN: add ACEI #HLD: statin #Obesity: counseled on diet, exercise #Hypothyroidism: LT4 #Left leg DVT: >10 yrs ago, provoked. Doesn't need further AC; he wants to d/w his PCP, Dr. Israel #Diet: cardiac, NPO for cath #Disp: inpatient admission for cath Subjective: no chest pain Objective: Vital Signs Temp Pulse Resp BP Pulse Ox 36.7 C 73 14 154/96 H 99 10/22/18 11:15 10/22/18 11:15 10/22/18 11:15 10/22/18 11:15 10/22/18 11:15 10/21/18 10/22/18 10/23/18 05:59 05:59 05:59 Intake Total 1250 Balance 1250 PT 15.6 SEC (12.0-15.0) H 10/22/18 10:43 INR 1.22 (0.83-1.16) H 10/22/18 10:43 - Time Spent With Patient Time Spent with Patient: greater than 35 minutes Time Spent with Patient: Greater than 35 minutes spent on this patients care, greater than 50% of time spent counseling, educating, and coordinating care regarding the above mentioned plan. - Physical Exam Constitutional: obese Eyes: PERRL Ears, Nose, Mouth, Throat: moist mucous membranes Cardiovascular: regular rate and rhythym Respiratory: no respiratory distress Gastrointestinal: other (surgical incisions healing. Hernia present) Skin: warm Musculoskeletal: full muscle strength Neurologic: AAOx3, CN II-XII Intact Psychiatric: interacting appropriately ICD10 Worksheet Patient Problems: Problems Problem Status Onset Abdominal pain Acute Chest pain Acute C. difficile diarrhea Acute Confusion Acute Coronary artery calcification Acute Fever Acute Syncope Acute Diverticulitis Chronic
--- NOTE | 2018-10-22 14:49 | ASMTCMCOM ---
CM Note CM Note Notes: Pt is a 63 y/o man admitted for abdominal pain and chest pain. Pt is having a stress test today. Pt will most likely d/c independent when medically stable. No therapies ordered at this time. CM to follow. Plan: Independent Date Signed: 10/22/2018 02:48 PM Electronically Signed By:ALVERTO Albarado
[2018-10-22] MEDS ORDERED: LABETALOL HCL 5 MG/ML 20 ML MDV ONE (15:12)
[2018-10-22] MEDS ORDERED: CLOPIDOGREL BISULFATE 75 MG TAB ONE (15:24)
[2018-10-22] MEDS ORDERED: hydrALAZINE 20 MG/ML VIAL ONE (15:34)
[2018-10-22] MEDS ORDERED: ATROPINE SULFATE 1 MG/10 ML SYR IVP PRN (16:00)
[2018-10-22] MEDS ORDERED: CLOPIDOGREL BISULFATE 75 MG TAB PO ONE (16:00)
[2018-10-22] MEDS ORDERED: fentaNYL 100 MCG/2 ML INJ IVP PRN (16:18)
[2018-10-22] MEDS ORDERED: fentaNYL 100 MCG/2 ML INJ IV ONE (16:30)
[2018-10-22] MEDS: TAMSULOSIN HCL 0.4 MG CAP PO SCH (18:45)
[2018-10-22] MEDS: ATORVASTATIN CALCIUM 40 MG TAB PO SCH (18:45)
[2018-10-22] MEDS: METOPROLOL TARTRATE 25 MG TAB PO SCH (23:20)
[2018-10-23 04:36] LABS: PLATELET COUNT 228 10^3/uL (150-400)
--- NOTE | 2018-10-23 05:27 | CPIP ---
DATE OF PROCEDURE: 10/22/2018 PROCEDURE: 1. Coronary angiography. 2. Left ventricular end-diastolic pressure. 3. Stenting of right coronary artery with Synergy drug-eluting stent. INDICATION: Acute coronary syndrome with elevated troponin. ACCESS: Patient was prepped and draped in the sterile fashion. 1% lidocaine was used to anesthetize the right inguinal region. A 6-S[place] introducer sheath was placed selectively in the right common femoral artery via modified Seldinger technique. The 6-[place] introducer sheath was later exchanged for an 8-S[place] introducer sheath via exchange wire technique. CORONARY ANGIOGRAPHY: A 6-S[place] JL4 was advanced to the left main coronary artery and images obtain ed. The left main coronary artery bifurcated into an LAD and circumflex coronary arteries. The left main coronary artery appeared normal. The left anterior descending coronary artery had a proximal l noelle segmental 40% to 50% stenosis present. The remainder of the vessel is free of any significant di sease. The circumflex coronary artery is nondominant. Circumflex coronary artery had mild luminal i rregularities throughout. There was no stenosis greater than 15%. A 6-[place] JR4 was advanced to th e right coronary artery and images obtained. The right coronary artery was ectatic in the proximal s egment. In the mid 1 segment there is a long segmental 30% stenosis present. In the mid 2 segment t here was a discreet 85% stenosis present with what appeared to be thrombus just distal to this stenos is. In the distal vessel there was a discreet 40% to 50% stenosis present. LEFT VENTRICULAR END-DIASTOLIC PRESSURE: 6-S[place] pigtail catheter was placed in the left ventricle and left ventricular end-diastolic pressure obtained. Left ventricular end-diastolic pressure was el evated at 22 mmHg. PERCUTANEOUS CORONARY INTERVENTION OF THE RIGHT CORONARY ARTERY: A 6-[place] JR4 was advanced to the right coronary artery and images obtained. Angiography confirmed the presence of a high-grade lesion involving the mid vessel. A Luge wire was placed in the distal vessel and position verified by efe ography. Several attempts were made at trying to pass a Pronto catheter to perform thrombectomy. Th scooter were unsuccessful secondary to inability to pass. The 6-S[place] Arabian system was withdrawn and an 8-Case nch system introduced. An 8-S[place] hockey-stick catheter was advanced to the right coronary artery. Images obtained, angiography confirmed the presence of high-grade disease involving the mid right co ronary artery. A Luge wire was placed in the distal vessel and position verified by angiography. A 3.0 x 20 Emerge balloon was used to pre-dilate the lesion. Followup angiography demonstrated signifi cant residual stenosis. Several attempts were made to try to pass a 3.0 x [address]-eluting st ent in the distal vessel. These were unsuccessful. A wiggle wire was added to the Luge wire and anahi guillermo in the distal vessel. Position was verified by angiography. A 3.0 x 24 Synergy drug-eluting kaila nt was then placed across the lesion and deployed. Followup angiography demonstrated MATA-3 flow wit h no residual stenosis. A 3.0 x 16 Synergy drug-eluting stent was then telescoped into the previousl y-placed stent and deployed. Followup angiography demonstrated MATA-3 flow, incomplete stent expansi on at the overlap. A 3.0 x 15 Emerge balloon was placed across the overlap and deployed at 16 atmosp heres. Followup angiography demonstrated no residual stenosis, MATA-3 flow. A 3.0 x 16 Synergy drug -eluting stent was then placed in the proximal portion of the vessel and deployed. Followup angiogra phy demonstrated MATA-3 flow. No residual stenosis. COMPLICATIONS: None. CONCLUSIONS: 1. Single-vessel coronary artery disease involving the right coronary artery. 2. Mildly elevated left ventricular end-diastolic pressure of 22 mmHg. 3. Status post successful percutaneous coronary intervention of the right coronary artery using Syne rgy drug-eluting stent. /[id number]/MODL
[2018-10-23] MEDS: LEVOTHYROXINE 100 MCG TAB PO SCH (05:28)
--- NOTE | 2018-10-23 06:06 | CPEKG ---
Test Reason : OPEN Blood Pressure : / mmHG Vent. Rate : 060 BPM Atrial Rate : 059 BPM P-R Int : 149 ms QRS Dur : 087 ms QT Int : 458 ms P-R-T Axes : 023 059 -43 degrees QTc Int : 458 ms Sinus rhythm Inferolateral T wave inversions. Confirmed by Juan Goldberg ([id number]) on 10/23/2018 6:06:34 AM Referred By: Confirmed By:Juan Goldberg
[2018-10-23] MEDS: TAMSULOSIN HCL 0.4 MG CAP PO SCH (08:10)
[2018-10-23] MEDS: ATORVASTATIN CALCIUM 40 MG TAB PO SCH (08:10)
[2018-10-23] MEDS: METOPROLOL TARTRATE 25 MG TAB PO SCH (08:10)
[2018-10-23] MEDS ORDERED: LISINOPRIL 20 MG TAB PO SCH (09:00)
[2018-10-23] MEDS ORDERED: LISINOPRIL 10 MG TAB PO SCH (09:00)
[2018-10-23] MEDS ORDERED: ASPIRIN EC 325 MG TAB PO SCH (09:00)
[2018-10-23] MEDS ORDERED: CLOPIDOGREL BISULFATE 75 MG TAB PO SCH (09:00)
--- NOTE | 2018-10-23 09:04 | HOSPPROG ---
Hospitalist Progress Note Assessment/Plan: #CAD: stent to RCA -BB, ASA, statin, Plavix #HTN: better-controlled with Lisinopril #HLD: statin #Obesity: counseled on diet, exercise #Hypothyroidism: LT4 #Left leg DVT: >10 yrs ago, provoked. Doesn't need further AC; he wants to d/w his PCP, Dr. Israel #Diet: cardiac, NPO for cath #Disp: DC today . See DC summary for today's exam Objective: Vital Signs Temp Pulse Resp BP Pulse Ox 36.6 C 62 12 144/87 H 95 10/23/18 07:27 10/23/18 07:27 10/23/18 07:27 10/23/18 07:27 10/23/18 07:27 Laboratory Results 10/23/18 03:35 10/23/18 03:35 10/22/18 10/23/18 10/24/18 05:59 05:59 05:59 Intake Total 1250 500 Output Total 150 Balance 1250 350 PT 15.6 SEC (12.0-15.0) H 10/22/18 10:43 INR 1.22 (0.83-1.16) H 10/22/18 10:43 ICD10 Worksheet Patient Problems: Problems Problem Status Onset Abdominal pain Acute C. difficile diarrhea Acute Chest pain Acute Confusion Acute Coronary artery calcification Acute Fever Acute Syncope Acute Diverticulitis Chronic
--- NOTE | 2018-10-23 09:51 | PDMN ---
Medical Necessity Medical necessity: Change to inpt as of 10/22/18 @ 15:18. Pt meets inpt criteria per MD order and MCG M-40, Angina. y/o initially presented w/upper abd pain, nausea, elevated troponin, admitted w/ACS. Pt upgraded to inpt as troponins cont to increase in high risk pt requiring acute intervention angiography and stenting of R coronary artery. Est LOS>2MN for ongoing management of above.
[2018-10-23 12:06] VITALS: BP 143/81
--- NOTE | 2018-10-23 13:59 | SOAPPROG ---
[facility]RE[facility] Progress Note Assessment/Plan: 1. ACS - Pt presented with epigastric pain and nausea concerning for an anginal equivalent. EKG demonstrated no acute ST or T changes. His troponin was mildly elevated. He was taken to the cardiac catheterization laboratory for risk stratification. Coronary angiography demonstrated single-vessel coronary artery disease. He was treated with percutaneous coronary intervention of his right coronary artery using Synergy drug-eluting stents --> Continue ASA, Plavix, metoprolol, lisinopril, and atorvastatin. --> Will discontinue aspirin at 1 month if patient continues Coumadin therapy for his history of DVT. 2. HTN - Adequately controlled. Continue metoprolol and lisinopril. 3. Hyperlipidemia - Patient was started on atorvastatin 40 mg daily. FLP and LFTs in 3 months. 4. DVT - Patient has a history of a DVT associated with prolonged air travel. He has been on chronic Coumadin therapy secondary to this event. He will follow up with Hematology to discuss if prolong therapy is warranted. Discussed risks and benefits of Coumadin versus novel agents. Patient would like to use Coumadin if prolong therapy is warranted. Patient will discontinue aspirin at 1 month if he stays on Coumadin for DVT prophylaxis. Subjective: No chest pain No orthopnea or PND ambulating with out difficulty Objective: Vital Signs Temp Pulse Resp BP Pulse Ox 36.4 C 66 10 L 143/81 H 97 10/23/18 12:05 10/23/18 12:05 10/23/18 12:05 10/23/18 12:05 10/23/18 12:05 Laboratory Results 10/23/18 03:35 10/23/18 03:35 10/22/18 10/23/18 10/24/18 05:59 05:59 05:59 Intake Total 500 Output Total 150 Balance 350 PT 15.6 SEC (12.0-15.0) H 10/22/18 10:43 INR 1.22 (0.83-1.16) H 10/22/18 10:43 Physical Exam - Physical Exam General Appearance: alert, no apparent distress Respiratory: chest non-tender, lungs clear Cardiac/Chest: regular rate, rhythm Extremities: pedal edema, other (No hematoma. + echymsosis) Neuro/Psych: alert, oriented x 3 ICD10 Worksheet Patient Problems: Problems Problem Status Onset Abdominal pain Acute C. difficile diarrhea Acute Chest pain Acute Confusion Acute Coronary artery calcification Acute Fever Acute Syncope Acute Diverticulitis Chronic
--- NOTE | 2018-10-23 14:01 | GDS ---
DISCHARGE DIAGNOSES: 1. CAD, status post JAVON to RCA. 2. Hypertension. 3. Hyperlipidemia. 4. Obesity. 5. Hypothyroidism. 6. History of left leg deep vein thrombosis. 7. History of diverticulitis, status post resection complicated by peritonitis. 8. Abdominal hernia. HISTORY OF PRESENT ILLNESS: A 63-year-old male with hypertension, hyperlipidemia, obesity, and complex abdominal surgery, presenting with solar plexus pain. Underwent ostomy reversal, 08/04/2018, by Dr. Luna at [facility], was discharged home with an abdominal binder. Day of admission, he was putting his binder on, felt very ill, with achy pain in his solar plexus. He had some mild nausea with this pain. He checked his blood pressure at home, was elevated to 224/117 after arguing with his son. In the ER, initial troponin was elevated at 0.054. Reports a normal nuclear stress test in the past, but I could not find this in [facility]. HOSPITAL COURSE BY PROBLEM: 1. CAD: Troponin peaked at 1.37. Underwent cardiac cath that showed ectatic RCA with 85% stenosis that was stented. LAD with proximal 40% to 50% stenosis. Medical management with full-dose aspirin, Plavix, beta wang, statin. If he does stay on Coumadin, then will stop aspirin after 1 month, but if stays on anticoagulation, will decrease that dose to 81 mg daily. 2. History of left leg DVT: Per patient, this was provoked over 10 years ago. He has not been compliant with his Coumadin. He will follow up with his PCP, Dr. Israel, to discuss. 3. Hypertension. Added lisinopril 20 mg daily. 4. Hyperlipidemia, statin. 5. Obesity. Counseled on diet and exercise. 6. History of diverticulitis and peritonitis: Status post ostomy reversal, , by Dr. Luna. He can follow up with him. DISPOSITION: Patient is stable for discharge. NEW MEDICATIONS: See medication reconciliation. PHYSICAL EXAMINATION: VITAL SIGNS: Today, temperature 36.4, blood pressure 143 /81, heart rate in the 60s, respirations 12, 97% on room air. GENERAL: He is obese, no acute distress, walking around the room. HEENT: PERRLA. Moist mucous membranes. CV: Regular rate and rhythm. LUNGS: Clear. ABDOMEN: Obese, soft, nontender. Surgical scar is healing. MUSCULOSKELETAL: Femoral access site without hematoma. Palpable pulse. NEURO: 2 through 12 intact. PSYCH: Alert and oriented x3. Time spent on discharge: Greater than 30 minutes at bedside, explaining followup plan and medications. /[id number]/MODL MTDD
--- NOTE | 2018-10-24 17:31 | CPEKG ---
Test Reason : OPEN Blood Pressure : / mmHG Vent. Rate : 061 BPM Atrial Rate : 061 BPM P-R Int : 152 ms QRS Dur : 080 ms QT Int : 457 ms P-R-T Axes : 012 040 -56 degrees QTc Int : 461 ms Sinus rhythm Nonspecific T abnormalities, diffuse leads Confirmed by Juan Goldberg ([id number]) on 10/24/2018 5:31:15 PM Referred By: Confirmed By:Juan Goldberg
== END 2018-10-23 13:39 | disposition home or self-care (01) | DRG 229 ==
LOC: F2W 22:10 → OBSVTOIN 10-22 15:18
PROVIDERS: ADMIT Internal Medicine; ATTEND Internal Medicine
PROC: 027004Z Dilation of Coronary Artery, One Artery with Drug-eluting Intraluminal Device, Open Approach (ICD-10-PCS; principal; 2018-10-22)
DX: I25.10 Atherosclerotic heart disease of native coronary artery without angina pectoris (principal); E86.9 Volume depletion, unspecified; E78.5 Hyperlipidemia, unspecified; E66.9 Obesity, unspecified; E03.9 Hypothyroidism, unspecified; K46.9 Unspecified abdominal hernia without obstruction or gangrene; Z86.718 Personal history of other venous thrombosis and embolism; Z79.01 Long term (current) use of anticoagulants
CPT/HCPCS: 84484-ER; 96374; C1725; C1757; C1760; C1769; C1874; C1887; C9600; G0378; J0360; J0583; J1200; J1327; J1644; J2250; J2405; J3010; Q9967